=== PATIENT | male | born 1970 | race Caucasian/White ===

== ENCOUNTER → 2024-07-13 | Outpatient (CLI) | payer BC, SELFPAY ==
[2024-07-13 08:46] LABS: Collection Type, Urine Clean Catch; Squamous Epithelial Cell,Urine 0 /hpf (0-5)
[2024-07-13 08:58] LABS: Basophils # (Auto) 0.1 Thou/mm3 (0.0-0.2); Basophils % (Auto) 1 % (0-2.5); Eosinophils # (Auto) 0.5 Thou/mm3 (0.0-0.5); Eosinophils % (Auto) 7 % (0-10); Hematocrit 45.9 % (41.0-53.0); Hemoglobin 16.2 g/dL (13.5-16.0); Immature Granulocytes % (Auto) 0 % (0-0); Immature Granulocytes Auto 0.02 Thou/mm3 (0.00-0.00); Lymphocytes # (Auto) 2.7 Thou/mm3 (1.0-4.8); Lymphocytes % (Auto) 36 % (10-50); Mean Corpuscular HGB Conc 35.3 g/dl (31.0-37.0); Mean Corpuscular Hemoglobin 30.4 pg (25.0-35.0); Mean Corpuscular Volume 86 fL (80-100); Monocytes # (Auto) 0.6 Thou/mm3 (0.0-0.8); Monocytes % (Auto) 9 % (0-12); Neutrophils # (Auto) 3.6 Thou/mm3 (1.8-7.7); Neutrophils % (Auto) 48 % (37-80); Nucleated Red Blood Cell % 0 /100 WBC (0); Platelet Count 307 Thou/mm3 (140-440); RDW Standard Deviation 38.4 fL (35.1-43.9); Red Blood Count 5.33 Miln/mm3 (4.50-5.90); White Blood Count 7.5 Thou/mm3 (3.8-10.6)
[2024-07-13 09:05] LABS: Bilirubin,Urine Negative (Negative); Blood,Urine Negative (Negative); Clarity,Urine Clear (Clear/Hazy); Color,Urine Lt-Yellow (Lt Yel-Yel); Culture Indicated,Urine Not Indicated; Glucose, Urine Negative (Negative); Ketones,Urine Negative (Negative); Leukocyte Esterase,Urine Negative (Negative); Nitrite,Urine Negative (Negative); PH,Urine 5.5 (5.0-7.0); Protein,Urine Negative (Neg - Trace); RBC,Urine 1 /hpf (0-3); Specific Gravity,Urine 1.024 (1.001-1.035); Urobilinogen,Urine Negative mg/dL (0.0-1.0); WBC,Urine 1 /hpf (0-5)
[2024-07-13 09:10] LABS: Glucose Estimated Average 128 mg/dL (80-131); Hemoglobin A1C 6.1 % Hgb (4.8-6.0)
[2024-07-13 09:11] LABS: Prostate Specific Antigen 0.22 ng/mL (0-4.00)
[2024-07-13 09:15] LABS: Alanine Aminotransferase 46 U/L (10-49); Albumin, Serum 4.6 gm/dL (3.5-5.0); Alkaline Phosphatase 67 U/L (46-116); Anion Gap 5 (7-16); Aspartate Amino Transferase 37 U/L (0-34); BUN/Creatinine Ratio 16 Ratio (12-20); Bilirubin,Total 0.8 mg/dL (0.3-1.2); Blood Urea Nitrogen 16 mg/dL (9-23); Calcium 9.4 mg/dL (8.3-10.6); Calcium (Corrected) 9.4 mg/dL (8.5-10.1); Carbon Dioxide 30.6 mMol/L (20.0-31.0); Cardiac Risk Estimate 5.2 RATIO (4.0-6.7); Chloride 102 mMol/L (98-107); Cholesterol 248 mg/dL (132-200); Globulin 2.3 gm/dL (2.3-3.5); Glucose 122 mg/dL (74-106); HDL Cholesterol 48 mg/dL (40-60); LDL Cholesterol,Calculated 160 mg/dL (0-130); Osmolality,Calculated 277 (275-295); Sodium 138 mMol/L (136-145); Total Protein 6.9 gm/dL (5.7-8.2); Triglycerides 200 mg/dL (30-150); eGFR > 60 See Note
[2024-07-18 06:50] LABS: Sex Hormone Binding Globulin* 28 nmol/L (10-50); Testosterone, Free,Dialysis 51.4 pg/mL (35.0-155.0); Testosterone, Total, Dialysis 314 ng/dL (250-1100)
== END | disposition home or self-care (01) ==
PROVIDERS: PCP Family Medicine; Referring Provider Physician Assistant; Visit Provider Physician Assistant
DX: E78.2 Mixed hyperlipidemia (principal)
CPT/HCPCS: 36415; 80053; 80061; 81001; 83036; 84153; 84270; 84402; 84403; 84443; 85025

== ENCOUNTER → 2024-07-22 | Outpatient (CLI) | payer BC, SELFPAY ==
--- NOTE | 2024-07-22 09:52 | XR_ITS ---
Examination: Bilateral hips, AP pelvis, 5 views Technique: AP, lateral views both hips, AP pelvis, 5 views Exam date and time: July 22, 2019 5:10 AM INDICATIONS: Bilateral hip pain 30 years FINDINGS: Bilateral mild to moderate hip osteoarthritis No right or left hip fracture or dislocation No avascular necrosis Bones of the pelvis intact IMPRESSION: Bilateral mild to moderate hip osteoarthritis
== END | disposition home or self-care (01) ==
LOC: CDIM 09:08
PROVIDERS: PCP Family Medicine; Referring Provider Physician Assistant; Visit Provider Physician Assistant
DX: M16.0 Bilateral primary osteoarthritis of hip (principal)
CPT/HCPCS: 73523

== ENCOUNTER → 2024-07-22 | Outpatient (CLI) | payer BC, SELFPAY ==
[2024-07-26 07:08] LABS: Fecal Globin Result NOT DETECTED (NOT DETECTED)
== END | disposition home or self-care (01) ==
LOC: SLDO 09:25
PROVIDERS: PCP Family Medicine; Referring Provider Physician Assistant; Visit Provider Physician Assistant
DX: E78.2 Mixed hyperlipidemia (principal)
CPT/HCPCS: 82274; G0328

== ENCOUNTER 2024-11-04 10:25 | Day surgery (SDC) | payer BC, SELFPAY ==
[2024-11-03 10:48] VITALS: BMI 33.0
[2024-11-04] VITALS (10 sets, daily range): BP systolic 103–170; BP diastolic 67–119; PULSE 66–87; RESP 8–18; TEMP 36.4–36.6; O2SAT 95–100; BMI 32.5
[2024-11-04] MEDS: BENZOCAINE 20% (Hurricaine) SPRAY 1 DOSE TOP (12:00)
[2024-11-04] MEDS: DiphenhydrAMINE INJ 50 MG/ML VIAL 25 MG IV (12:02)
[2024-11-04] MEDS: SODIUM CHLORIDE 0.9% 500 ML 500 ML 20 ML IV (12:02)
[2024-11-04] MEDS: fentaNYL CIT INJ 50 mCg/ML AMP 2ML (ASD USE ONLY) 25 MCG IV (12:11)
[2024-11-04] MEDS: MIDAZOLAM INJ 1 MG/ML VIAL 2 ML (ASD USE ONLY) 2 MG IV (12:11)
--- NOTE | 2024-11-04 12:20 | SUR.PHASEII ---
received pt and report from STEPHY Hannah. vss, no distress noted. IV in place, no s/s of infiltration or redness to site. Pt asleep, arousable to tactile stimulation. abd soft on palpation, no pain or nausea noted.
== END 2024-11-04 12:50 | disposition home or self-care (01) ==
PROVIDERS: PCP Physician Assistant; Referring Provider Specialist; Visit Provider Specialist
PROC: (CPT 43239; principal; 2024-11-04 12:00)
DX: K22.2 Esophageal obstruction (principal); K20.90 Esophagitis, unspecified without bleeding; K29.70 Gastritis, unspecified, without bleeding
CPT/HCPCS: 43248; 43239; C1769; J1200; J2250; J3010; J7040; A9270